=== PATIENT | female | born 1990 | race Caucasian/White ===

== ENCOUNTER 2020-07-10 15:46 | Outpatient (CLI) | payer OTHER, SELFPAY ==
--- NOTE | ~2020-07-10 | US_ITS ---
EXAMINATION: US venous doppler [facility] DATE: 07/10/2020 16:43 INDICATION: Right calf pain. TECHNIQUE: Grayscale ultrasound images without and with compression and Doppler ultrasound images of the bilateral lower extremity veins were obtained. COMPARISON: Ultrasound 04/07/2018 FINDINGS: The visualized portions of right common femoral vein, profunda (deep) femoral vein, femoral vein, and greater saphenous vein outflow are patent. The right popliteal vein and calf veins are not well visu alized. The visualized portions of left common femoral vein, profunda femoral vein, femoral vein, popliteal v ein, and greater saphenous vein outflow are patent. The left calf veins are not well-visualized. IMPRESSION: 1. No deep venous thrombosis. The calf veins and right popliteal vein were poorly visualized. Reviewed, dictated and finalized at location B. [employer] IMPRESSION: 1. No deep venous thrombosis. The calf veins and right popliteal vein were poo rly visualized.
== END 2020-07-10 15:47 | disposition home or self-care (01) ==
DX: M79.661 Pain in right lower leg (principal)
CPT/HCPCS: 93970